=== PATIENT | male | born 1970 | race Hispanic/Latino ===

== ENCOUNTER 2020-06-23 20:17 | Emergency (ER) | payer OTHER, SELFPAY ==
[2020-06-23] MEDS ORDERED: Boostrix 0.5 ML (Tdap) VIAL ONE (20:24)
--- NOTE | 2020-06-23 21:23 | RAD ---
RADIOGRAPH LEFT THIRD DIGIT THREE VIEWS: 06/23/20 HISTORY: 49-year-old male with acute traumatic pain in the left middle finger. FINDINGS: No facture is identified. No dislocation. The PIP joint is slightly hyperextended. IMPRESSION: No fracture. POS: [facility]
[2020-06-23] MEDS ORDERED: Lidocaine 1% (PF) 30 ML VIAL ONE (21:53)
== END 2020-06-23 20:33 | disposition home or self-care (01) ==
LOC: NAV ERS 20:17
DX: S56.424A Laceration of extensor muscle, fascia and tendon of left middle finger at forearm level, initial encounter (principal); W45.8XXA Other foreign body or object entering through skin, initial encounter
CPT/HCPCS: 90471; 90715; J2001